=== PATIENT | male | born 1950 | race African-American/Black ===

== ENCOUNTER 2023-01-26 11:48 | Outpatient (CLI) | payer MEDICARE | END 2023-01-26 11:49 | disposition home or self-care (01) | LOC: BICRAD 11:48 | PROVIDERS: ATTEND Family Medicine | DX: M25.551 Pain in right hip (principal); M89.8X5 Other specified disorders of bone, thigh ==

== ENCOUNTER 2023-02-01 13:42 | Outpatient (CLI) | payer MEDICARE | END 2023-02-01 13:43 | disposition home or self-care (01) | LOC: BICCT 13:42 | PROVIDERS: ATTEND Psychiatry & Neurology Neurology | DX: G20.A1 Parkinson's disease without dyskinesia, without mention of fluctuations (principal) | CPT/HCPCS: 70450 ==

== ENCOUNTER 2023-04-16 12:36 | Outpatient (CLI) | payer MEDICARE | END 2023-04-16 12:37 | disposition home or self-care (01) | PROVIDERS: ATTEND Psychiatry & Neurology Neurology | DX: I49.9 Cardiac arrhythmia, unspecified (principal) | CPT/HCPCS: 93225; 93226 ==